=== PATIENT | male | born 1960 | race Caucasian/White ===

== ENCOUNTER → 2020-08-10 09:46 | Outpatient (BNVA) | payer BC, SELFPAY | PROVIDERS: PCP Internal Medicine; Visit Provider Urology ==

== ENCOUNTER 2021-08-05 09:46 | Outpatient (REF) | payer BC, SELFPAY ==
--- NOTE | ~2021-08-05 | US_ITS ---
EXAMINATION: US RETROPERITONEAL LIMITED (RENAL ONLY) CLINICAL INFORMATION: Calculus of kidney. COMPARISON: Outside renal ultrasound from [facility] July [address] of the abdomen and pelvis CT September 2019 TECHNIQUE: Real-time imaging of the kidneys. FINDINGS: RIGHT KIDNEY: 13.6 x 8.9 x 7.8 cm (SAG x AP x TRV). The kidney is normal in size, contour, and echogenicity. Renal cortical thickness is normal. No renal calculi or hydronephrosis. There is a 4.1 x 4.5 x 4.1 cm minimally complex cyst in the upper pole. This has a single thin anterior septation and slightly thickened echogenic appearing posterior wall. This is similar appearing to previous renal ultrasound July 2019. This measured 5.6 x 4 x 5 cm on previous renal ultrasound July 2019. LEFT KIDNEY: 11.8 x 7.1 x 6.3 cm (SAG x AP x TRV). The kidney is normal in size, contour, and echogenicity. Renal cortical thickness is normal. No renal calculi or hydronephrosis. There is an 8 x 9 mm peripelvic simple appearing cyst in the mid to lower pole. US/US renal BI IMPRESSION: No renal stone. 4.1 x 4.5 x 4.1 cm minimally complex cyst in the upper pole of the right kidney. Measurements are slightly decreased in size but otherwise similar to July 2019 outside renal ultrasound. Small left renal peripelvic cyst.
== END 2021-08-05 09:47 | disposition home or self-care (01) ==
LOC: HO.HMGCX 09:46
PROVIDERS: PCP Internal Medicine; Visit Provider Urology
DX: N20.0 Calculus of kidney (principal); N28.1 Cyst of kidney, acquired
CPT/HCPCS: 76775

== ENCOUNTER → 2021-08-13 08:28 | Outpatient (BNVA) | payer BC, SELFPAY | PROVIDERS: PCP Internal Medicine; Visit Provider Urology ==

== ENCOUNTER 2022-07-22 08:55 | Outpatient (REF) | payer BC, SELFPAY ==
--- NOTE | ~2022-07-22 | US_ITS ---
EXAMINATION: US RETROPERITONEAL LIMITED (RENAL ONLY) CLINICAL INFORMATION: Calculus of kidney. COMPARISON: Renal ultrasound 08/05/2021 and 08/02/2019. CT abdomen and pelvis 09/21/2019. TECHNIQUE: Real-time imaging of the kidneys. FINDINGS: RIGHT KIDNEY: 12.3 x 6.1 x 7.3 cm (SAG x AP x TRV). The kidney is normal in size, contour, and echogenicity. Renal cortical thickness is normal. No renal calculi or hydronephrosis. An upper pole cyst is present measuring 5.6 x 5.8 x 5.5 cm. Septation noted previously is not seen on the current study. On the prior CT scan, a tiny bit of calcification was present in the wall. No solid renal masses. LEFT KIDNEY: 11.7 x 6.7 x 5.7 cm (SAG x AP x TRV). The kidney is normal in size, contour, and echogenicity. Renal cortical thickness is normal. No renal calculi or hydronephrosis. A 0.9 cm small midpole parapelvic cyst is present. US/US renal BI IMPRESSION: Bilateral renal cysts, Bosniak class I on the left. Bosniak class II on the right. No further followup should be necessary.
== END 2022-07-22 08:56 | disposition home or self-care (01) ==
LOC: HO.HMGCX 08:55
PROVIDERS: PCP Internal Medicine; Visit Provider Urology
DX: N20.0 Calculus of kidney (principal); N28.1 Cyst of kidney, acquired
CPT/HCPCS: 76775

== ENCOUNTER → 2022-08-12 10:41 | Outpatient (BNVA) | payer BC, SELFPAY | PROVIDERS: PCP Internal Medicine; Visit Provider Urology | DX: Z13.89 Encounter for screening for other disorder (principal) ==